=== PATIENT | female | born 1995 | race Caucasian/White ===

== ENCOUNTER → 2017-09-27 | Outpatient (REF) | payer OTHER ==
[2017-09-27 11:22] LABS: FREE T4 1.21 NG/DL (0.78-1.33)
== END ==
LOC: M LABDRAW1 08:33
DX: E03.9 Hypothyroidism, unspecified (principal)

== ENCOUNTER → 2018-08-07 | Outpatient (REF) | payer OTHER ==
[2018-08-07 17:12] LABS: HEMATOCRIT 36.7 % (36.0-47.0); HEMOGLOBIN 12.2 g/dl (12.0-15.5); MEAN CORPUSCULAR HEMOGLOBIN 27.6 pg (27.0-33.0); MEAN CORPUSCULAR HGB CONC 33.2 g/dl (32.0-36.5); PLATELET COUNT, AUTOMATED 274 10^3/uL (150-450); RED BLOOD COUNT 4.42 10^6/uL (4.00-5.40); WHITE BLOOD COUNT 11.7 10^3/uL (4.0-10.0)
[2018-08-07 20:01] LABS: HCG, SERUM QUANTITATIVE 55794 MIU/ML
[2018-08-08 09:52] LABS: RUBELLA IgG QUALITATIVE IMMUNE (IMMUNE)
[2018-08-08 10:21] LABS: HEPATITIS C VIRUS ABY INDEX < 0.0 INDEX (<0.8); HIV 1&2 SCREEN CENTAUR NEGATIVE (NEGATIVE)
== END ==
LOC: M LAB REF 16:36
PROVIDERS: ATTEND Obstetrics & Gynecology
DX: O36.80X0 Pregnancy with inconclusive fetal viability, not applicable or unspecified (principal); Z3A.00 Weeks of gestation of pregnancy not specified

== ENCOUNTER → 2019-02-18 | Outpatient (REF) | payer OTHER, MEDICAID | LOC: M LAB REF 16:45 | PROVIDERS: ATTEND Obstetrics & Gynecology | DX: Z34.03 Encounter for supervision of normal first pregnancy, third trimester (principal); Z3A.00 Weeks of gestation of pregnancy not specified ==

== ENCOUNTER 2019-03-24 05:58 | Inpatient (IN) | payer OTHER, MEDICAID ==
[2019-03-24] VITALS (10 sets, daily range): BP systolic 91–126; BP diastolic 50–73
[~2019-03-24] VITALS: Ht 157.5 cm; Wt 111.3 kg
[2019-03-24] MEDS ORDERED: LR 1,000 ML IV ONE (06:45)
[2019-03-24] MEDS: LR 1,000 ML IV SCH ×3 (07:00→10:49)
[2019-03-24] MEDS ORDERED: LEVO88TA3 PO (07:02)
[2019-03-24] MEDS ORDERED: PRENTAB9 PO (07:02)
[2019-03-24 07:14] LABS: HEMATOCRIT 33.7 % (36.0-47.0); HEMOGLOBIN 10.8 g/dl (12.0-15.5); MEAN CORPUSCULAR HEMOGLOBIN 26.5 pg (27.0-33.0); MEAN CORPUSCULAR VOLUME 82.6 fl (80.0-96.0); PLATELET COUNT, AUTOMATED 225 10^3/uL (150-450); RED BLOOD COUNT 4.08 10^6/uL (4.00-5.40)
[2019-03-24] MEDS ORDERED: miSOPROStol 50 MCG 1/2 TAB (S0191) PO SCH (07:45)
[2019-03-24] MEDS: miSOPROStol 50 MCG 1/2 TAB (S0191) PO PRN ×3 (08:25→18:25)
[2019-03-25] VITALS (33 sets, daily range): BP systolic 89–166; BP diastolic 44–74
[2019-03-25] MEDS ORDERED: OXYTOCIN 30 UNITS IN 0.9% NaCl 500ML IV BAG (J2590) As Ordered ONE (08:10)
[2019-03-25] MEDS ORDERED: OXYTOCIN DRIP 30 UNITS in IV 1 EA IV SCH (08:30)
[2019-03-25] MEDS: PRENATAL VITAMINS CHEWABLE TABLET PO SCH (09:00)
[2019-03-25] MEDS: DOCUSATE SODIUM 100 MG CAP PO SCH ×2 (09:00→21:00)
[2019-03-25] MEDS ORDERED: FENTANYL 2MCG/ML ROPIVACAINE 0.2% IN 0.9% NACL 100ML IVBAG As Ordered ONE (09:30)
[2019-03-25] MEDS ORDERED: FENTANYL/ROPIVACAINE/NACL BAG 100 ML EPIDURAL SCH (10:45)
[2019-03-25] MEDS ORDERED: REFRIGERATOR IV KEYS XX PRN (10:45)
[2019-03-25] MEDS ORDERED: ONDANSETRON 4MG/2ML VIAL (J2405) IV PRN ×4 (10:45→14:30)
[2019-03-25] MEDS ORDERED: diphenhydrAMINE INJ 50MG/ML VIAL (J1200) IV PRN ×2 (10:45→13:15)
[2019-03-25] MEDS ORDERED: EPIDURAL/PCA KEYS XX PRN (10:45)
[2019-03-25] MEDS ORDERED: LACTATED RINGER'S 1000 ML IV PRN (10:45)
[2019-03-25] MEDS ORDERED: NALOXONE INJ 0.4 MG/1 ML VIAL (J2310) IV PRN ×3 (10:45→13:15)
[2019-03-25] MEDS ORDERED: EPIDURAL COMMENT XX SCH (10:45)
[2019-03-25] MEDS: ePHEDrine SULFATE 25 MG/5 ML(5MG/ML) SYRINGE IV PRN ×6 (11:20→11:52)
--- NOTE | 2019-03-25 11:38 | HPE ---
DATE OF ADMISSION: 03/24/2019 Carine is a 23-year-old female 1, para 0 with an estimated date of confinement (EDC) of 03/27/2019, EGA 41 weeks gestation who is being admitted for an induction. Upon admission, no bleeding or leakage of fluid. Good movement. She denies any contractions. Her record reviewed, which was essentially unremarkable. LABORATORIES: Blood type is AB positive, rubella immune, hepatitis negative, HIV negative, GC and chlamydia negative, 1-hour sugar testing was within normal limits. Her GBS is negative. PAST MEDICAL HISTORY: Significant for thyroid disease. PAST SURGICAL HISTORY: Appendectomy. SOCIAL HISTORY: She denies any alcohol, drug or cigarette smoking. She is . REVIEW OF SYSTEMS: Unremarkable. MEDICATIONS: vitamin and levothyroxine 50 mcg daily. ALLERGIES: SULFA DRUGS. Last ultrasound done on 03/17 shows the fetus in vertex position with an estimated weight of 7 pounds 10 ounces, in the 54 percentile for weight. MARTIN of 13.3. PHYSICAL EXAMINATION: Normal-appearing female in no acute distress. Abdomen: Soft, nontender, nondistended. Extremities: No clubbing, cyanosis or edema. Vaginal exam: Fingertip to 1 cm, 50% effaced, fetus at -3 to -4 station, vertex position. PLAN: Admit to labor and delivery. Induction process discussed with the patient, as well as mode of induction. She is aware at this point the hospital only has Cytotec for induction, Sims bulb with Pitocin. We did agree to proceed with Cytotec induction. Risks and benefits discussed, as well as possibility of section. Pain management also discussed. The patient opts for an epidural. We will continue to monitor. Anticipate delivery.
[2019-03-25] MEDS ORDERED: ceFAZolin SOD 2 GM in IV 1 EA IV ONE (12:30)
[2019-03-25] MEDS: BICITRA 30ML SOLN UDC PO ONE (12:30)
[2019-03-25] MEDS ORDERED: MORPHINE PRES-FREE INJ 10 MG/10 ML VIAL (J2274) As Ordered ONE (12:35)
[2019-03-25] MEDS ORDERED: LIDOCAINE 2% W/EPIN INJ 20ML **PRES FREE As Ordered ONE (12:35)
[2019-03-25] MEDS: OXYTOCIN DRIP 30 UNITS in IV 1 EA IV SCH (12:36)
[2019-03-25] MEDS ORDERED: OXYTOCIN INJ 10 UNITS/ML VIAL (J2590) As Ordered ONE (12:37)
[2019-03-25] MEDS ORDERED: NORCO, ANEXSIA 5/325MG TABLET (HYDROcodone/ACETAMINOPHEN) PO PRN ×2 (12:45)
[2019-03-25] MEDS ORDERED: RHOGAM 300 MCG (1500 IU) INJ (J2790) IM SCH (12:45)
[2019-03-25] MEDS ORDERED: MEASLES,MUMPS,RUBELLA VACCINE INJ (MMR-II) (90707) SC SCH (12:45)
[2019-03-25] MEDS ORDERED: NALBUPHINE HCL 10 MG/ML AMP (J2300) IV PRN (13:15)
[2019-03-25] MEDS ORDERED: METOCLOPRAMIDE INJ 10MG/2ML VIAL (J2765) IV PRN (13:15)
[2019-03-25 13:32] LABS: CORD GAS ABE A -1.9; CORD GAS HCO3 A 25.1 MEQ/L; CORD GAS PCO2 A 50.8 mmHg; CORD GAS PH A 7.311 UNITS; CORD GAS PO2 A 24.5 mmHg; CORD GAS SBC A 21.7 MEQ/L; CORD GAS TCO2 A 26.6 MEQ/L
[2019-03-25 13:34] LABS: CORD GAS ABE V -3.6; CORD GAS HCO3 V 20.6 MEQ/L; CORD GAS O2 SAT V 71.8 %; CORD GAS PCO2 V 35.5 mmHg; CORD GAS PH V 7.382 UNITS; CORD GAS PO2 V 30.2 mmHg; CORD GAS SBC V 20.8 MEQ/L; CORD GAS TCO2 V 21.7 MEQ/L
[2019-03-25] MEDS ORDERED: ONDANSETRON 4MG/2ML VIAL (J2405) As Ordered ONE (13:38)
[2019-03-25] MEDS ORDERED: MEPERIDINE INJ 25 MG/ML VIAL (J2175) As Ordered ONE (14:12)
[2019-03-25] MEDS ORDERED: MEPERIDINE INJ 25 MG/ML VIAL (J2175) IV ONE (14:15)
[2019-03-25] MEDS ORDERED: LR 500 ML IV ONE (14:15)
[2019-03-25] MEDS ORDERED: oxyCODONE 5MG TAB PO PRN (14:30)
[2019-03-25] MEDS ORDERED: fentaNYL 100 MCG/2 ML INJECTION (J3010) IV PRN (14:30)
[2019-03-25] MEDS: IBUPROFEN 800 MG TAB PO SCH (16:40)
[2019-03-25] MEDS: LR 1,000 ML IV SCH (17:31)
[2019-03-26] MEDS: IBUPROFEN 800 MG TAB PO SCH ×4 (00:18→23:13)
[2019-03-26 02:00] VITALS: BP 96/52
[2019-03-26] MEDS: LR 1,000 ML IV SCH (02:00)
[2019-03-26 06:00] VITALS: BP 100/60
[2019-03-26 07:40] LABS: HEMATOCRIT 31.7 % (36.0-47.0); HEMOGLOBIN 9.9 g/dl (12.0-15.5); MEAN CORPUSCULAR HEMOGLOBIN 26.2 pg (27.0-33.0); MEAN CORPUSCULAR HGB CONC 31.2 g/dl (32.0-36.5); MEAN CORPUSCULAR VOLUME 83.9 fl (80.0-96.0); PLATELET COUNT, AUTOMATED 200 10^3/uL (150-450); RED BLOOD COUNT 3.78 10^6/uL (4.00-5.40)
[2019-03-26] MEDS: DOCUSATE SODIUM 100 MG CAP PO SCH ×2 (09:01→20:21)
[2019-03-26] MEDS: PRENATAL VITAMINS CHEWABLE TABLET PO SCH (09:01)
[2019-03-26 12:43] VITALS: BP 110/67
[2019-03-26 14:00] VITALS: BP 112/63
[2019-03-26] MEDS ORDERED: IBUPROFEN 800 MG TAB PO SCH (16:00)
--- NOTE | 2019-03-26 18:04 | RO ---
DATE OF PROCEDURE: 03/26/2019 Carine is a 23-year-old female who is admitted for an induction at 41 weeks gestation. She had a nonreassuring heart rate tracing, remote from delivery. After extensive counseling, a decision was made to proceed with a primary section. PREOPERATIVE DIAGNOSIS: Nonreassuring heart rate tracing, remote from delivery. POSTOPERATIVE DIAGNOSIS: Nonreassuring heart rate tracing, remote from delivery. PROCEDURE: Primary low transverse section via Pfannenstiel incision. SURGEON: Brian Rosas DO PRODUCT COORDINATOR: Juanis Jameson ANESTHESIA: Epidural. COMPLICATIONS: None. ESTIMATED BLOOD LOSS: 600 mL. FINDINGS: Live male in occiput transverse position. score 9 and 9. weight 8 pounds 0 ounces. Normal appearing tubes and ovaries. Placenta removed manually. DESCRIPTION OF PROCEDURE: After obtaining informed consent, the patient was taken to the operating room where epidural anesthetic was found to be adequate. She was then draped and prepped in the usual sterile fashion in the supine position. At this point, a Pfannenstiel incision was made. This was carried down to the fascia. Fascia was incised in a midline fashion and carried through laterally. Superior aspect of the fascia then grasped with two Aria clamps, tented off and dissected off the rectus muscles sharply. The inferior aspect was dissected off in a similar fashion. Rectus muscles in midline fashion. Peritoneum identified, peritoneal cavity entered bluntly. Superior and inferior dissection of the peritoneum was then done with good visualization of the bladder. At this point, a Mobius skin retractor was placed. A low transverse uterine incision was made. The was delivered in atraumatic fashion. Nose and mouth bulb suctioned. Cord doubly clamped and cut and infant was handed over to the waiting warmer. Cord blood and cord gas were sent. Placenta removed manually. Uterus cleared of all clot and debris, and the uterine incision was then repaired in two separate layers of #0 Vicryl sutures. All superficial bleeders were coagulated. The skin was reapproximated in a subcuticular fashion using #3-0 Vicryl on a Reyes. Steri-Strips placed. The patient tolerated the procedure well. She was then transferred to recovery room in stable condition.
[2019-03-26 18:15] VITALS: BP 112/66
[2019-03-26 22:04] VITALS: BP 113/60
[2019-03-27 02:16] VITALS: BP 108/67
[2019-03-27 06:03] VITALS: BP 111/70
[2019-03-27] MEDS ORDERED: IBUP80TA PO (06:45)
[2019-03-27] MEDS ORDERED: HYDR-4571 PO (06:45)
[2019-03-27] MEDS: IBUPROFEN 800 MG TAB PO SCH (07:27)
[2019-03-27] MEDS: DOCUSATE SODIUM 100 MG CAP PO SCH (07:27)
[2019-03-27] MEDS: PRENATAL VITAMINS CHEWABLE TABLET PO SCH (07:27)
== END 2019-03-27 10:20 | disposition home or self-care (01) | DRG 788 ==
LOC: M LDI 05:58 → M OBS 03-25 15:33
PROVIDERS: ADMIT Obstetrics & Gynecology; ATTEND Obstetrics & Gynecology
PROC: 3E0P7GC Introduction of Other Therapeutic Substance into Female Reproductive, Via Natural or Artificial Opening (ICD-10-PCS; 2019-03-24)
PROC: 10D00Z1 Extraction of Products of Conception, Low, Open Approach (ICD-10-PCS; principal; 2019-03-26)
DX: O48.0 Post-term pregnancy (principal); Z3A.41 41 weeks gestation of pregnancy; O99.284 Endocrine, nutritional and metabolic diseases complicating childbirth; E03.9 Hypothyroidism, unspecified; O76 Abnormality in fetal heart rate and rhythm complicating labor and delivery; O64.0XX0 Obstructed labor due to incomplete rotation of fetal head, not applicable or unspecified; Z37.0 Single live birth

== ENCOUNTER → 2023-01-11 | Outpatient (CLI) | payer BC ==
[~2023-01-11] MED LIST: HYDR-4571 PO; IBUP80TA PO; LEVO88TA3 PO; PRENTAB9 PO
== END ==
LOC: M WHC 11:09
PROVIDERS: ATTEND Advanced Practice Midwife
DX: Z53.9 Procedure and treatment not carried out, unspecified reason (principal)

== ENCOUNTER → 2023-01-18 | Outpatient (REF) | payer BC | LOC: M PLALAB 10:34 | PROVIDERS: ATTEND Advanced Practice Midwife | DX: Z34.90 Encounter for supervision of normal pregnancy, unspecified, unspecified trimester (principal) ==